=== PATIENT | male | born 1975 | race Caucasian/White ===

== ENCOUNTER 2017-03-19 23:04 | Emergency (ER) | payer OTHER ==
[~2017-03-19] VITALS: Ht 185.4 cm; Wt 115.9 kg
[2017-03-19 23:10] VITALS: BP 165/95; PULSE 59; RESP 18; O2SAT 99
--- NOTE | 2017-03-19 23:21 | ED.REPORT ---
HPI-Chest Pain 40 and Over Date of Service Mar 19, 2017 ED Provider: Dr. Gerald Zhang The patient is a 41 year old male w/ a hx of HTN, chronic leg varicosities, and atrial septal defect repaired in adulthood, who presents to the ED due to chest pain slow gradual onset 2 days ago. On Monday, he began to experience chest tightness chest increasing to a point that it is now difficult to breathe. The pain is constant, sharp, midsternal, and radiating into the right chest. Pt reports it is uncomfortable to take a deep breath due to pain and c/o associated heartburn. His symptoms do not increase with exertion. He has been extremely stressed lately, dealing with family issues at home. Pt denies productive cough, nausea, vomiting, diaphoresis, cold symptoms, and abdominal pain. Pt had an atrium septum defect that was fixed in 2013. Nursing Notes Stated Complaint: CHEST PAIN Chief Complaint: Chest Pain Nursing Notes Reviewed: Yes Allergies: Coded Allergies: hydrocodone (Verified Allergy, Unknown, 03/19/17) Scheduled Lisinopril (Lisinopril) 10 Mg Tablet 10 MG PO DAILY Omeprazole (Omeprazole) 20 Mg Tablet.dr 20 MG PO BID General Time Seen by MD: 23:21 Chief Complaint Chest pain Hx Obtained From: Patient Arrived By: Ambulance Sudden in Onset?: Yes Onset Occurred: 2 days ago Symptom Duration: Since onset Location: : Chest right: Substernal Quality: Painful, Sharp Severity: Current: Mild Recent Healthcare: No recent doctor visit, No recent hospitalization Similar Sx Previous: No Past Medical History Past Medical History atrium septum defect fixed in 2013 HTN Review of Systems Respiratory: Reports: Shortness of breath, Denies: Prod cough, clear, Prod cough, green, Prod cough, white, Prod cough, yellow Cardiovascular: Reports: Chest pain GI: Denies: Abdominal pain, Nausea, Vomiting Skin: Denies Diaphoresis Complete sys rev & neg: except as marked. Ears / Nose / Throat: Denies: Nasal congestion Physical Exam Initial Vital Signs Vital Signs (First) Date Time Temp Pulse Resp B/P Pulse Ox O2 Delivery O2 Flow Rate FiO2 03/19/17 23:10 36.2 59 18 165/95 99 Room Air Initial VS: Reviewed General/Constitutional: Awake, Alert, Cooperative Respiratory / Chest: Atraumatic, Breath sounds NL, Breath sounds = bilat, No rales Cardiovascular: Heart rate NL, Regular rhythm, Heart sounds NL Lower Ext Edema: Positive: Bilateral 2+ (chronic) Abdomen: Atraumatic, Soft, Non-tender Lower Extremity / Pelvis / MS: No deformity, Neurologic intact varicose veins Skin: Atraumatic, Warm, Dry Neurologic: Oriented X3, Speech NL, No motor deficits Head / Eyes: Atraumatic, Normocephalic, PERRL, EOMI Upper Extremity / MS: Atraumatic, Inspection NL, No deformity Interpretation & Diagnostics Interpretation & Diagnostics: CT PULMONARY ANGIOGRAM: No evidence of pulmonary embolism. Lungs are clear Radiologist: Anthony Valentin M.D. Lab Results Interpretation Result Diagram: 03/19/17 2324 03/19/17 2324 Test 03/19/17 23:24 03/20/17 01:15 White Blood Count 4.9th/mm3 (3.8-10.1) Red Blood Count 4.85mil/mm3 (4.40-5.80) Hemoglobin 15.3g/dL (13.8-17.2) Hematocrit 45.1% (41.0-50.0) Mean Corpuscular Volume 93.0fL (81-100) Mean Corpuscular Hemoglobin 31.5pg (27.0-35.0) Mean Corpuscular Hemoglobin Concent 33.9% (32.0-37.0) Red Cell Distribution Width 12.5% (12.3-15.4) Platelet Count 180bil/L (150-400) Neutrophils (%) (Auto) 57.5% (40-74) Lymphocytes (%) (Auto) 34.4% (14-46) Monocytes (%) (Auto) 5.3% (4-12) Eosinophils (%) (Auto) 2.2% (0-5) Basophils (%) (Auto) 0.4% (0-3) Prothrombin Time 10.5sec (8.1-12.5) Prothromb Time International Ratio 0.98ratio Activated Partial Thromboplast Time 27.3sec (22.8-33.0) D-Dimer 0.68mg/L FEU (<0.50) Sodium Level 138mEq/L (134-144) Potassium Level 3.4mEq/L (3.5-5.2) Chloride Level 97mEq/L (97-108) Carbon Dioxide Level 24mmol/L (18-29) Blood Urea Nitrogen 14mg/dL (6-24) Creatinine 1.04mg/dL (0.76-1.27) Estimat Glomerular Filtration Rate 83mL/min (>59) Glucose Level 106mg/dL (60-99) Calcium Level 9.5mg/dL (8.5-10.1) Magnesium Level 2.1mg/dL (1.6-2.6) Total Bilirubin 0.4mg/dL (0.0-1.2) Aspartate Amino Transf (AST/SGOT) 23U/L (0-50) Alanine Aminotransferase (ALT/SGPT) 18U/L (0-44) Alkaline Phosphatase 49U/L (25-150) Pro-B-Type Natriuretic Peptide 122.4pg/mL (0-86) Total Protein 7.7g/dL (6.4-8.4) Albumin 4.8g/dL (3.4-5.0) Troponin T < 0.010ug/L (0.0-0.011) ECG Interpretation ECG Interpretation: RBBB Time: 23:17 Interpreted by: ED physician Normal ECG Interpretation: Normal sinus rhythm (rate 57) X-Ray Chest Interpretation Chest Xray Interpretation: IMPRESSION: no acute findings View: Portable Interpretation / Wet Read by: Wet read ED physician Re-Eval/Medical Decision Med Decision/Clinical Course 41-year-old with recent repair of an atrial septal defect, but no known coronary disease, presents with chest pain which is basically present for many days, pleuritic in nature, and unlikely coronary disease. He had up moderately positive d-dimer, and was scanned due to his chronic leg edema and varicosities as a possible risk factor. This was fortunately negative. I suspect this is esophageal in origin ultimately. Begun with omeprazole twice a day and plan follow up with PCP. EKG is a right bundle branch block, but enzymes are negative 2. Counseled Regarding: Diagnosis, Lab results, Need for follow-up, When/why to return to ED Discharge & Departure Primary Impression: Non-cardiac chest pain Additional Impression: Esophagitis Disposition: Home Discharge Condition All VS Reviewed: Yes Condition: Stable Additional Instructions: Thank you for entrusting us with your care today. We do not find any evidence of dangerous cause for your chest pain. There is no evidence of clot, no evidence of cardiac disease, and you are low risk for cardiac disease in any case. The likeliest single cause for your symptoms is esophageal spasm, possibly from reflux and from stress. Begin omeprazole twice daily. Follow up with your primary care physician. Return to the Emergency Department if you experience any new or worsening symptoms. I hope your stressors resolve in your favor, and you feel better soon! Referrals: [facility] Scribe Attestation Portion of this note were transcribed by Jemma Arenas. I, Dr. Zhang, personally performed the history, physical exam, and medical decision-making: I reviewed and confirmed the accuracy for the information in the transcribed note. Signed by: juan Menon, 03/20/17 0100 copies to: [facility] Gerald Zhang MD Mar 19, 2017 23:21 Jemma Arenas Mar 19, 2017 23:29
[2017-03-19] MEDS ORDERED: Pantoprazole 4 mg/mL 10 mL Inj IVPUSH ONE (23:30)
[2017-03-19 23:40] LABS: BASOPHILS % (AUTO) 0.4 % (0-3); EOSINOPHILS % (AUTO) 2.2 % (0-5); MONOCYTES % (AUTO) 5.3 % (4-12); Mean Corpuscular Hemoglobin 31.5 pg (27.0-35.0); NEUTROPHILS % (AUTO) 57.5 % (40-74); Platelet Count 180 bil/L (150-400)
[2017-03-20] MEDS ORDERED: LISI10TA PO (00:06)
[2017-03-20 00:09] LABS: D-Dimer 0.68 mg/L FEU (<0.50); INR 0.98 ratio
[2017-03-20 00:21] VITALS: BP 150/93; PULSE 56; RESP 16; O2SAT 97
[2017-03-20 00:41] LABS: Magnesium 2.1 mg/dL (1.6-2.6); TROPONIN T < 0.010 ug/L (0.0-0.011)
[2017-03-20] MEDS ORDERED: OMEP20TA86 PO (02:09)
[2017-03-20 02:11] VITALS: BP 154/96; PULSE 53; RESP 18; O2SAT 100
--- NOTE | 2017-03-20 08:21 | DRSVH ---
PROCEDURE: CT ANGIO CHEST PULMONARY EMBOLISM ([id number]) INDICATIONS: 41 year-old male with chest pain, shortness of breath and elevated D-dimer. TECHNIQUE: After the administration of intravenous contrast, 2 mm thick sections acquired from the pulmonary api tyesha to the posterior costophrenic angles. 3-dimensional maximum intensity projection (MIP) coronal a nd sagittal reformats were then acquired through the thorax. For radiation dose reduction, the follo wing was used: automated exposure control, adjustment of mA and/or kV according to patient size. COMPARISON: None. FINDINGS: Image quality: Excellent. Pulmonary arteries: Pulmonary arteries are normal in size, and demonstrate no intraluminal filling d efects to suggest central pulmonary embolism. Lungs and pleura: Lungs are clear. No pleural effusions or pneumothorax. Central and peripheral ai rways are patent. Mediastinum: Heart size is normal, without pericardial effusion. No mediastinal or hilar adenopathy . Thoracic aorta is normal in caliber and enhancement. Esophagus is normal in caliber, without hiat al hernia. Bones and chest wall: No suspicious bony lesions. Ribs and thoracic spine appear intact throughout. Thyroid gland is normal. No axillary or supraclavicular adenopathy. Abdomen: Visualized upper abdominal solid organs appear normal in the early arterial phase of enhanc ement. IMPRESSION: No evidence of acute central pulmonary embolism. No significant discrepancy with the shift supervisor melting radiology preliminary report. Dictated by: David Alcazar M.D. on 03/20/2017 at 8:18 Approved by: David Alcazar M.D. on 03/20/2017 at 8:19
--- NOTE | 2017-03-20 09:09 | DRSVH ---
PROCEDURE: X-RAY CHEST ONE VIEW, PORTABLE ([id number]) INDICATIONS: cp TECHNIQUE: One view of the chest was acquired. COMPARISON: [facility], CT, CT ANGIO CHEST PE, 03/20/2017, 1:23. FINDINGS: Surgical changes and devices: Metallic radiodensities projected over the right heart.. Lungs and pleura: No pleural effusions or pneumothorax. Lungs are clear. Mediastinum: Mediastinal contours appear normal. Heart size is normal. Bones and chest wall: No suspicious bony lesions. Overlying soft tissues appear unremarkable. IMPRESSION: No acute cardiopulmonary disease. Dictated by: Olivier ALICEA Interpreted: Iliana Rahman MD on 03/20/2017 at 9:07 Transcribed by: YANELIS on 03/20/2017 at 9:08 Approved by: Iliana Rahman M.D. on 03/20/2017 at 10:14
== END 2017-03-20 02:16 | disposition home or self-care (01) ==
LOC: SED 23:26
DX: R07.89 Other chest pain (principal); K20.9 Esophagitis, unspecified; F43.9 Reaction to severe stress, unspecified; I10 Essential (primary) hypertension; Z88.5 Allergy status to narcotic agent
CPT/HCPCS: 36415; 71010; 71275; 80053; 83735; 83880; 84484; 85025; 85378; 85610; 85730; 93005; 96374; 99285; Q9967